=== PATIENT | female | born 1990 | race Caucasian/White ===

== ENCOUNTER 2019-06-22 08:44 | Emergency (ER) | payer OTHER ==
[~2019-06-22] VITALS: Ht 162.6 cm; Wt 69.0 kg
[2019-06-22 09:00] VITALS: Ht 162.6 cm; Wt 69.0 kg
[2019-06-22] MEDS ORDERED: ACETAMINOPHEN 325 MG TAB PO STA (09:17)
[2019-06-22 14:02] VITALS: BP 118/65; PULSE 72; RESP 20
== END 2019-06-22 14:03 | disposition home or self-care (01) ==
LOC: E/R 08:44
DX: O00.90 Unspecified ectopic pregnancy without intrauterine pregnancy (principal); R07.9 Chest pain, unspecified; Z3A.00 Weeks of gestation of pregnancy not specified
CPT/HCPCS: 36415; 71045; 76801; 76817; 80053; 81001; 81025; 84702; 85025; 86900; 86901; 93005; Z7502; Z7610

== ENCOUNTER 2019-06-24 09:11 | Emergency (ER) | payer OTHER ==
[~2019-06-24] VITALS: Ht 154.9 cm; Wt 69.0 kg
[2019-06-24 09:20] VITALS: Ht 154.9 cm; Wt 69.0 kg
[2019-06-24] MEDS ORDERED: METHOTREXATE 50 MG INJ IM ONE ×3 (12:30→13:00)
[2019-06-24 16:00] VITALS: BP 105/72; PULSE 71; RESP 71
== END 2019-06-24 16:00 | disposition home or self-care (01) ==
LOC: FTE 09:11
DX: O00.90 Unspecified ectopic pregnancy without intrauterine pregnancy (principal)
CPT/HCPCS: 76801; 76817; 81001; 84702; 96372; J9260; Z7502